=== PATIENT | female | born 1995 | race Caucasian/White ===

== ENCOUNTER 2017-05-25 10:43 | Emergency (ER) | payer OTHER ==
[~2017-05-25] VITALS: Ht 157.5 cm; Wt 59.4 kg
[~2017-05-25 10:43] MED LIST: FLEXERIL PO; IBUPROFEN 800800 M1 PO; NOHOMEMEDICATIONS; ZOFRAN ODT4 MG PO
[2017-05-25 11:13] LABS: ABSOLUTE BASOPHILS 0.1 thou/uL (0.0-0.2); ABSOLUTE EOSINOPHILS 0.1 thou/uL (0.0-0.7); ABSOLUTE LYMPHOCYTES 2.4 thou/uL (0.8-5.3); ABSOLUTE MONOCYTES 0.7 thou/uL (0.0-1.2); ABSOLUTE NEUTROPHILS 10.6 thou/uL (1.6-8.1); BASOPHILS 0.7 %; EOSINOPHILS 0.9 %; HEMOGLOBIN 15.6 gm/dL (12.0-15.0); LYMPHOCYTES 17.5 %; MCH 31.5 pg (26.0-34.0); MCV 92.8 fL (80.0-100.0); MONOCYTES 5.2 %; MPV 8.9 fl. (7.2-11.1); NUCLEATED RBCS 0 /100WBC; PLATELET COUNT* 262 thou/uL (150-400); POLYS 75.7 %; RBC 4.96 mil/uL (4.20-5.00); RDW-CV 12.4 % (10.5-14.5); WBC 13.9 thou/uL (4.0-11.0)
[2017-05-25 11:25] LABS: CALCIUM 9.3 mg/dL (8.5-10.1); CREATININE 0.9 mg/dL (0.6-1.3); POTASSIUM 3.2 mmol/L (3.5-5.1)
[2017-05-25 11:29] LABS: ALBUMIN 4.2 g/dL (3.4-5.0); TOTAL BILIRUBIN 0.4 mg/dL (<0.1-1.0); TOTAL PROTEIN 7.6 g/dL (6.4-8.2)
[2017-05-25 11:49] LABS: URINE BILIRUBIN NEGATIVE (Negative); URINE BLOOD NEGATIVE (Negative); URINE CLARITY CLEAR; URINE COLOR YELLOW; URINE GLUCOSE-RANDOM NEGATIVE (Negative); URINE KETONES TRACE (Negative); URINE LEUKOCYTES-REFLEX NEGATIVE (Negative); URINE NITRITE-REFLEX NEGATIVE (Negative); URINE PROTEIN NEGATIVE (Negative); URINE SPECIFIC GRAVITY 1.025 (1.005-1.030); URINE UROBILINOGEN 0.2 E.U./dl (0.2-1.0)
[2017-05-25] MEDS ORDERED: ZOFRAN ODT4 MG SUBLING (11:58)
[2017-05-25 12:01] VITALS: BP 115/64
== END 2017-05-25 12:01 | disposition home or self-care (01) ==
LOC: M.ERS 10:43
PROVIDERS: Family Medicine
DX: R10.9 Unspecified abdominal pain (principal); F41.0 Panic disorder [episodic paroxysmal anxiety]; J45.909 Unspecified asthma, uncomplicated; Z88.2 Allergy status to sulfonamides

== ENCOUNTER 2017-08-06 12:39 | Emergency (ER) | payer OTHER ==
[~2017-08-06] VITALS: Ht 157.5 cm; Wt 61.2 kg
[~2017-08-06 12:39] MED LIST changes: +ZOFRAN ODT4 MG SUBLING
[2017-08-06 13:23] LABS: ABSOLUTE BASOPHILS 0.1 thou/uL (0.0-0.2); ABSOLUTE EOSINOPHILS 0.1 thou/uL (0.0-0.7); ABSOLUTE MONOCYTES 0.7 thou/uL (0.0-1.2); ABSOLUTE NEUTROPHILS 10.1 thou/uL (1.6-8.1); BASOPHILS 0.6 %; EOSINOPHILS 0.5 %; LYMPHOCYTES 15.7 %; MCH 31.2 pg (26.0-34.0); MCHC 33.9 g/dL (28.0-37.0); MONOCYTES 5.2 %; MPV 8.8 fl. (7.2-11.1); NUCLEATED RBCS 0 /100WBC; PLATELET COUNT* 281 thou/uL (150-400); RBC 5.11 mil/uL (4.20-5.00); RDW-CV 12.3 % (10.5-14.5)
[2017-08-06 13:36] LABS: URINE BILIRUBIN NEGATIVE (Negative); URINE BLOOD 1+ (Negative); URINE CLARITY CLEAR; URINE COLOR YELLOW; URINE GLUCOSE-RANDOM NEGATIVE (Negative); URINE KETONES NEGATIVE (Negative); URINE LEUKOCYTES-REFLEX NEGATIVE (Negative); URINE NITRITE-REFLEX NEGATIVE (Negative); URINE PROTEIN NEGATIVE (Negative); URINE SPECIFIC GRAVITY >= 1.030 (1.005-1.030); URINE UROBILINOGEN 0.2 E.U./dl (0.2-1.0)
[2017-08-06 13:47] LABS: AMORPHOUS URATES Moderate /LPF (None Seen); BACTERIA-REFLEX None Seen /HPF (None Seen); CASTS None Seen /LPF (None Seen); MUCUS None Seen strn/LPF (None Seen); SQUAMOUS 4-10 Moderate /LPF (0-3); URINE RBC 0-2 Rare /HPF (0-2); URINE WBC-REFLEX 0-5 Rare /HPF (0-5)
[2017-08-06 13:48] LABS: CALCIUM 9.1 mg/dL (8.5-10.1); CREATININE 0.9 mg/dL (0.6-1.3)
[2017-08-06 13:52] LABS: ALBUMIN 4.3 g/dL (3.4-5.0); TOTAL BILIRUBIN 0.3 mg/dL (<0.1-1.0); TOTAL PROTEIN 7.5 g/dL (6.4-8.2)
[2017-08-06] MEDS ORDERED: PROMS25 WY RECTAL (15:56)
[2017-08-06] MEDS ORDERED: TRAMADOL 50 MG50 MG PO (15:56)
[2017-08-06] MEDS ORDERED: ZOFRAN ODT4 MG PO (15:56)
[2017-08-06 16:13] VITALS: BP 120/82
== END 2017-08-06 16:16 | disposition home or self-care (01) ==
LOC: M.ERS 12:39
PROVIDERS: Physician Assistant
DX: R10.13 Epigastric pain (principal); J45.909 Unspecified asthma, uncomplicated; Z88.1 Allergy status to other antibiotic agents

== ENCOUNTER 2017-09-22 17:36 | Emergency (ER) | payer OTHER ==
[~2017-09-22] VITALS: Ht 157.5 cm; Wt 65.3 kg
[~2017-09-22 17:36] MED LIST changes: +PROMS25 WY RECTAL; +TRAMADOL 50 MG50 MG PO
[2017-09-22] MEDS ORDERED: OMEPRAZOLE 20 M20 M1 PO (18:07)
[2017-09-22 18:35] VITALS: BP 122/81
== END 2017-09-22 18:37 | disposition home or self-care (01) ==
LOC: M.ERS 17:36
DX: S61.212A Laceration without foreign body of right middle finger without damage to nail, initial encounter (principal); S61.210A Laceration without foreign body of right index finger without damage to nail, initial encounter; J45.909 Unspecified asthma, uncomplicated; Z88.2 Allergy status to sulfonamides; W25.XXXA Contact with sharp glass, initial encounter; Y93.89 Activity, other specified; Y92.89 Other specified places as the place of occurrence of the external cause; Y99.8 Other external cause status